=== PATIENT | female | born 1960 | race Caucasian/White ===

== ENCOUNTER 2023-12-31 06:10 | Day surgery (SDC) | payer BC, SELFPAY ==
[2023-12-31 09:05] VITALS: BMI 36.1
[2023-12-31 09:07] VITALS: BP 152/95
[2023-12-31 09:15] VITALS: BMI 36.1
[2023-12-31 11:41] VITALS: BP 112/68
[2023-12-31 11:45] VITALS: BP 107/61
[2023-12-31 12:00] VITALS: BP 117/73
== END 2023-12-31 12:10 | disposition home or self-care (01) ==
LOC: GI 06:10
PROVIDERS: ATTENDING PHYSICIAN Internal Medicine Gastroenterology
DX: Z12.11 Encounter for screening for malignant neoplasm of colon (principal); K63.5 Polyp of colon; K57.30 Diverticulosis of large intestine without perforation or abscess without bleeding; K62.1 Rectal polyp; K64.9 Unspecified hemorrhoids; Z86.010 Personal history of colon polyps; Z98.890 Other specified postprocedural states; Z79.01 Long term (current) use of anticoagulants
CPT/HCPCS: 45338; 45331; 88305

== ENCOUNTER → 2024-02-29 08:10 | Outpatient (REF) | payer BC, SELFPAY | LOC: RAD 08:10 | PROVIDERS: ATTENDING PHYSICIAN Family Medicine | DX: S39.012A Strain of muscle, fascia and tendon of lower back, initial encounter (principal) | CPT/HCPCS: 72072; 72110 ==

== ENCOUNTER → 2024-03-25 15:17 | Outpatient (REF) | payer BC, SELFPAY | LOC: RAD 15:17 | PROVIDERS: ATTENDING PHYSICIAN Student in an Organized Health Care Education/Training Program | DX: R60.0 Localized edema (principal); I87.2 Venous insufficiency (chronic) (peripheral) | CPT/HCPCS: 93970 ==

== ENCOUNTER → 2024-07-08 07:31 | Outpatient (REF) | payer BC, SELFPAY | LOC: RAD 07:31 | PROVIDERS: ATTENDING PHYSICIAN Student in an Organized Health Care Education/Training Program; FAMILY PHYSICIAN Family Medicine | DX: M79.645 Pain in left finger(s) (principal) | CPT/HCPCS: 73130 ==

== ENCOUNTER → 2024-09-28 16:42 | Outpatient (REF) | payer BC, SELFPAY | LOC: WDC 16:42 | PROVIDERS: ATTENDING PHYSICIAN Family Medicine | DX: Z12.31 Encounter for screening mammogram for malignant neoplasm of breast (principal) | CPT/HCPCS: 77063; 77067 ==

== ENCOUNTER → 2024-10-08 09:34 | Outpatient (REF) | payer BC, SELFPAY | LOC: WDC 09:34 | PROVIDERS: ATTENDING PHYSICIAN Family Medicine | DX: R92.8 Other abnormal and inconclusive findings on diagnostic imaging of breast (principal) | CPT/HCPCS: 76642 ==

== ENCOUNTER 2025-01-21 06:20 | Day surgery (SDC) | payer BC, SELFPAY | END 2025-01-21 10:39 | disposition home or self-care (01) | LOC: GI 06:20 | PROVIDERS: ATTENDING PHYSICIAN Internal Medicine Gastroenterology | DX: Z12.11 Encounter for screening for malignant neoplasm of colon (principal); K57.30 Diverticulosis of large intestine without perforation or abscess without bleeding; K64.8 Other hemorrhoids; Z86.0101 Personal history of adenomatous and serrated colon polyps; Z98.890 Other specified postprocedural states | CPT/HCPCS: 45330 ==

== ENCOUNTER → 2025-04-08 09:39 | Outpatient (REF) | payer BC, SELFPAY | LOC: WDC 09:39 | PROVIDERS: ATTENDING PHYSICIAN Family Medicine | DX: R92.8 Other abnormal and inconclusive findings on diagnostic imaging of breast (principal) | CPT/HCPCS: 77061; 77065 ==

== ENCOUNTER → 2025-05-06 06:47 | Outpatient (REF) | payer BC, SELFPAY ==
[2025-05-06 07:30] LABS: Hematocrit 33.4 % (37.0-47.0); Hemoglobin 11.0 g/dL (12.0-16.0); Mean Corp Hgb Conc. 32.9 g/dL (33.0-37.0); Mean Corpuscular Volume 102.1 fL (81.0-99.0); Nucleated Red Blood Cells % 0 %; Platelet Count 245 10^3/uL (130-400); Red Cell Dist. Width 13.6 % (11.5-14.5)
[2025-05-06 08:47] LABS: Blood Urea Nitrogen 35 mg/dl (7-17); Calcium 8.6 mg/dl (8.4-10.2); Carbon Dioxide 29 mmol/L (22-30); Chloride 103 mmol/L (98-107); Glucose 102 mg/dl (70-99); Potassium 4.1 mmol/L (3.5-5.1); Sodium 139 mmol/L (135-145); eGFR 55.76
== END ==
LOC: REG 06:47
PROVIDERS: ATTENDING PHYSICIAN Specialist; FAMILY PHYSICIAN Family Medicine
DX: Z01.818 Encounter for other preprocedural examination (principal)
CPT/HCPCS: 36415; 80048; 85025